=== PATIENT | female | born 1950 | race Caucasian/White ===

== ENCOUNTER → 2017-07-28 | Outpatient (CLI) | payer OTHER, MEDICAID ==
[~2017-07-28] MED LIST: AMBIEN 10 MG TA10 MG; AMLODIPINE BESYL5 MG PO; CRESTOR5 MG PO; KLOR-CON 1010 MEQ; LASIX 40 MG TAB40 M1; LYRICA 50 MG50 MG; LYRICA100 MG; MACRODANTIN50 MG; MECLIZINE 25 MG25 M1; MOBIC15 MG; NORCO 5-325 TA1 EACH PO; PHENERGAN 25 MG25 M1; PRILOSEC 20 MG20 MG PO; PROPRANOLOL; REBIF; TEGRETOL XR200 MG; TIROSINT100 MCG; TOPROL XL100 MG PO; XYZAL5 MG
== END ==
LOC: M.RAD 11:52
DX: K44.9 Diaphragmatic hernia without obstruction or gangrene (principal)